=== PATIENT | female | born 1990 | race Caucasian/White ===

== ENCOUNTER 2021-06-29 08:20 | Emergency (ER) | payer MEDICARE, MEDICAID ==
[~2021-06-29] VITALS: Ht 167.6 cm; Wt 69.0 kg
[2021-06-29] MEDS ORDERED: ONDANSETRON HCL 4MG/2ML INJ IV STA (09:10)
[2021-06-29] MEDS ORDERED: SODIUM CHLORIDE 0.9% 1,000 ML IV ONE ×2 (09:15→12:45)
[2021-06-29 10:02] LABS: BG BASE EXCESS -6.3 mmol/L (-2.0-2.0); BG CARBOXYHEMOGLOBIN 1.2 % (0.5-1.5); BG DEOXYHEMOGLOBIN 1.8 % (0.0-5.0); BG FRACTION INSPIRED OXYGEN 21; BG HCO3 ACT 18.4 mmol/L (22.0-26.0); BG METHEMOGLOBIN 0.5 % (0.0-1.5); BG OXYGEN SATURATION 98.2 % (92.0-98.5); BG OXYHEMOGLOBIN 96.5 % (94.0-97.0); BG PCO2 34.2 mmHg (35.0-45.0); BG PH 7.349 (7.350-7.450); BG PO2 115.5 mmHg (75.0-100.0); BG SAMPLE SITE RIGHT RADIAL; BG TOTAL HEMOGLOBIN 13.9 g/dL (12.0-18.0); BG VENT MODE ROOM AIR
[2021-06-29 10:35] LABS: CLARITY URINE CLEAR (CLEAR); COLOR URINE YELLOW (YELLOW); KETONES URINE 4+ (NEGATIVE); LEUKOCYTE ESTERASE URINE NEGATIVE (NEGATIVE); NITRITE URINE NEGATIVE (NEGATIVE); OCCULT BLOOD URINE NEGATIVE (NEGATIVE); PROTEIN URINE NEGATIVE (NEGATIVE); SPECIFIC GRAVITY URINE 1.033 (1.005-1.030); UROBILINOGEN URINE 0.2 E.U./dL (0.2-1.0)
[2021-06-29 11:03] LABS: *AMPHETAMINES SCREEN URINE NEGATIVE (NEGATIVE); *BARBITURATES SCREEN URINE NEGATIVE (NEGATIVE); *BENZODIAZEPINES SCREEN URINE NEGATIVE (NEGATIVE); *COCAINE SCREEN URINE NEGATIVE (NEGATIVE)
[2021-06-29 11:04] LABS: CANNABINOID URINE SCREEN NEGATIVE (NEGATIVE); METHADONE URINE SCREEN NEGATIVE (NEGATIVE); OPIATES URINE SCREEN NEGATIVE (NEGATIVE); PHENCYCLIDINE URINE SCREEN NEGATIVE (NEGATIVE)
[2021-06-29 14:09] LABS: BASOPHILS % 0.4 % (0.0-2.0); EOSINOPHILS % 0.1 % (0.0-5.0); HEMATOCRIT. 37.9 % (36.0-48.0); HEMOGLOBIN. 12.5 g/dL (12.0-16.0); LYMPHOCYTES % 9.6 % (20.0-50.0); MEAN CORPUSCULAR HEMOGLOBIN 28.4 pg (28.0-32.0); MEAN CORPUSCULAR VOLUME 86.2 fL (81.0-99.0); MEAN PLATELET VOLUME 10.1 fl (7.4-10.4); MONOCYTES % 6.5 % (2.0-8.0); NEUTROPHILS % 83.4 % (40.0-76.0); PLATELET 207 x1000/uL (130-400); RED CELL DISTRIBUTION WIDTH 13.2 % (11.6-14.6)
[2021-06-29 14:12] LABS: CHLORIDE 110 mEq/L (98-107)
[2021-06-29 14:13] VITALS: BP 117/58
[2021-06-29 14:15] LABS: HCG SCREEN NEGATIVE
[2021-06-29 14:17] LABS: ETHANOL BLOOD < 10 mg/dL
[2021-06-29 14:18] LABS: PHOSPHORUS 3.5 mg/dL (2.5-4.9)
[2021-06-29 14:22] LABS: BETA HYDROXYBUTYRATE 4.1 mMol/L (0.0-0.3)
[2021-06-29] MEDS ORDERED: DEXT 5%/0.9% NACL KCL 20MEQ/L 1,000 ML IV ONE (14:30)
[2021-06-29] MEDS ORDERED: MAGNESIUM 2 G PREMIX 50 ML IV ONE (14:45)
[2021-06-29] MEDS ORDERED: INSULIN REGULAR (DRIP) 100 UNITS in SODIUM CHLORIDE 0.9% 99 ML IV NR (15:00)
[2021-06-29] MEDS ORDERED: INSULIN REGULAR (HUMULIN R) 300UNITS/3ML VIAL SUBCUT ONE (16:00)
[2021-06-29] MEDS ORDERED: ONDANSETRON 4MG ODT PO ONE (16:45)
== END 2021-06-29 17:05 | disposition left against medical advice (07) ==
LOC: ER 08:20 → CANBEDREQ 17:03 → ER 17:05
DX: U07.1 COVID-19 (principal); E11.10 Type 2 diabetes mellitus with ketoacidosis without coma; H91.90 Unspecified hearing loss, unspecified ear; Z79.4 Long term (current) use of insulin
CPT/HCPCS: 36415; 36600; 71045; 80053; 80305; 80320; 81003; 82010; 82375; 82805; 82962; 83605; 83690; 83735; 83930; 84100; 84703; 85025; 93005; 96361; 96374; 99291; J1815; J2405; J7030; J7050; Q0162; G0480

== ENCOUNTER 2021-06-30 09:43 | Inpatient (IN) | payer MEDICARE, MEDICAID ==
[~2021-06-30] VITALS: Ht 167.6 cm; Wt 63.5 kg
[2021-06-30] MEDS ORDERED: ONDANSETRON HCL 4MG/2ML INJ IV ONE (10:45)
[2021-06-30] MEDS ORDERED: SODIUM CHLORIDE 0.9% 1,000 ML IV ONE (10:45)
[2021-06-30 12:23] LABS: HEMATOCRIT. 41.8 % (36.0-48.0); HEMOGLOBIN. 12.6 g/dL (12.0-16.0); MEAN CORPUSCULAR VOLUME 92.6 fL (81.0-99.0); MEAN PLATELET VOLUME 10.6 fl (7.4-10.4); PLATELET 287 x1000/uL (130-400); RED BLOOD CELL COUNT 4.51 mill/uL (4.2-5.4); RED CELL DISTRIBUTION WIDTH 14.5 % (11.6-14.6)
[2021-06-30 12:30] LABS: CHLORIDE 106 mEq/L (98-107)
[2021-06-30 12:37] LABS: BETA HYDROXYBUTYRATE 6.4 mMol/L (0.0-0.3)
[2021-06-30 12:40] LABS: HCG SCREEN NEGATIVE
[2021-06-30 12:40] LABS: BG BASE EXCESS -21.6 mmol/L (-2.0-2.0); BG CARBOXYHEMOGLOBIN 0.3 % (0.5-1.5); BG DEOXYHEMOGLOBIN 2.6 % (0.0-5.0); BG FRACTION INSPIRED OXYGEN 21; BG HCO3 ACT 5.7 mmol/L (22.0-26.0); BG METHEMOGLOBIN 0.7 % (0.0-1.5); BG OXYGEN SATURATION 97.4 % (92.0-98.5); BG OXYHEMOGLOBIN 96.4 % (94.0-97.0); BG PCO2 17.9 mmHg (35.0-45.0); BG PO2 107.9 mmHg (75.0-100.0); BG SAMPLE SITE RIGHT RADIAL; BG TOTAL HEMOGLOBIN 13.7 g/dL (12.0-18.0); BG VENT MODE ROOM AIR
[2021-06-30] MEDS ORDERED: INSULIN REGULAR (DRIP) 100 UNITS in SODIUM CHLORIDE 0.9% 100 ML IV ONE (12:45)
[2021-06-30] MEDS ORDERED: INSULIN REGULAR (DRIP) 100 UNITS in SODIUM CHLORIDE 0.9% 100 ML IV PRN (13:00)
[2021-06-30] MEDS ORDERED: SODIUM BICARBONATE 8.4% 1 MEQ/ML 50ML SYR IV ONE (13:00)
[2021-06-30] MEDS: SODIUM CHLORIDE 0.9% 1,000 ML IV SCH ×6 (14:25→22:45)
[2021-06-30 14:44] LABS: CHLORIDE 111 mEq/L (98-107)
[2021-06-30] MEDS ORDERED: CLONIDINE 0.1MG TABLET PO PRN (14:45)
[2021-06-30] MEDS ORDERED: IPRATROPIUM/ALBUTEROL 0.5-3(2.5)MG/3ML NEB HHN PRN (14:45)
[2021-06-30] MEDS ORDERED: DIPHENHYDRAMINE 50MG/ML VIAL IV PRN (14:45)
[2021-06-30] MEDS ORDERED: ONDANSETRON HCL 4MG/2ML INJ IV PRN (14:45)
[2021-06-30 15:10] LABS: PLATELET ESTIMATE NORMAL
[2021-06-30] MEDS: CEFTRIAXONE 1 G PREMIX 50 ML IV SCH (16:47)
[2021-06-30 19:26] LABS: CLARITY URINE TURBID (CLEAR); COLOR URINE RED (YELLOW); KETONES URINE 4+ (NEGATIVE); LEUKOCYTE ESTERASE URINE 2+ (NEGATIVE); NITRITE URINE POSITIVE (NEGATIVE); OCCULT BLOOD URINE 2+ (NEGATIVE); PROTEIN URINE 2+ (NEGATIVE); SPECIFIC GRAVITY URINE 1.018 (1.005-1.030); UROBILINOGEN URINE 0.2 E.U./dL (0.2-1.0)
[2021-06-30 19:41] LABS: CHLORIDE 120 mEq/L (98-107)
[2021-06-30 19:47] LABS: PHOSPHORUS 2.7 mg/dL (2.5-4.9)
[2021-06-30] MEDS: DEXT 5%/0.9% NACL KCL 20MEQ/L 1,000 ML IV SCH (23:22)
[2021-07-01 02:38] LABS: CHLORIDE 124 mEq/L (98-107)
[2021-07-01] MEDS: SODIUM CHLORIDE 0.9% 1,000 ML IV SCH ×6 (02:45→22:57)
[2021-07-01] MEDS: DEXT 5%/0.9% NACL KCL 20MEQ/L 1,000 ML IV SCH ×4 (04:00→19:13)
[2021-07-01 05:36] LABS: CHLORIDE 125 mEq/L (98-107)
[2021-07-01 08:46] LABS: CHLORIDE 123 mEq/L (98-107)
[2021-07-01] MEDS: CEFTRIAXONE 1 G PREMIX 50 ML IV SCH (16:00)
[2021-07-02] MEDS: DEXT 5%/0.9% NACL KCL 20MEQ/L 1,000 ML IV SCH ×5 (00:37→20:00)
[2021-07-02 02:52] LABS: CHLORIDE 117 mEq/L (98-107)
[2021-07-02] MEDS: SODIUM CHLORIDE 0.9% 1,000 ML IV SCH ×4 (03:02→14:45)
[2021-07-02 05:36] LABS: CHLORIDE 123 mEq/L (98-107)
[2021-07-02 08:11] LABS: BG PH 7.365 (7.350-7.450); BG VENT MODE ROOM AIR
[2021-07-02 08:12] LABS: BG BASE EXCESS -5.9 mmol/L (-2.0-2.0); BG HCO3 ACT 18.6 mmol/L (22.0-26.0); BG OXYGEN SATURATION 97.7 % (92.0-98.5); BG OXYHEMOGLOBIN 97.3 % (94.0-97.0); BG PCO2 33.3 mmHg (35.0-45.0); BG PO2 106.4 mmHg (75.0-100.0); BG TOTAL HEMOGLOBIN 11.3 g/dL (12.0-18.0)
[2021-07-02 08:13] LABS: BG DEOXYHEMOGLOBIN 2.3 % (0.0-5.0); BG METHEMOGLOBIN 0.4 % (0.0-1.5)
[2021-07-02 08:56] LABS: BG SAMPLE SITE LEFT BRACHIAL
[2021-07-02] MEDS: ACETAMINOPHEN 325MG TABLET PO PRN (16:39)
[2021-07-02 18:05] LABS: CHLORIDE 110 mEq/L (98-107)
[2021-07-02] MEDS: CEFTRIAXONE 1 G PREMIX 50 ML IV SCH (20:54)
[2021-07-02] MEDS ORDERED: DEXTROSE 50% WATER 50ML SYRINGE IV PRN (23:45)
[2021-07-02] MEDS ORDERED: INSULIN GLARGINE UD 100 UNITS/ML SYR SUBCUT SCH (23:45)
[2021-07-02] MEDS ORDERED: BLOOD SUGAR DIAGNOSTIC STRIP TEST SCH (23:45)
[2021-07-03] MEDS: INSULIN LISPRO (HIGH DOSE) 100 UNITS/ML SUBCUT SCH ×5 (01:00→22:20)
[2021-07-03] MEDS: DEXT 5%/0.9% NACL KCL 20MEQ/L 1,000 ML IV SCH (01:00)
[2021-07-03] MEDS: BLOOD SUGAR DIAGNOSTIC STRIP TEST SCH ×6 (01:55→21:34)
[2021-07-03 05:14] LABS: BASOPHILS % 0.5 % (0.0-2.0); EOSINOPHILS % 1.2 % (0.0-5.0); HEMATOCRIT. 34.1 % (36.0-48.0); HEMOGLOBIN. 11.4 g/dL (12.0-16.0); LYMPHOCYTES % 33.5 % (20.0-50.0); MEAN CORPUSCULAR HEMOGLOBIN 28.7 pg (28.0-32.0); MEAN CORPUSCULAR VOLUME 86.1 fL (81.0-99.0); MEAN PLATELET VOLUME 9.7 fl (7.4-10.4); MONOCYTES % 9.3 % (2.0-8.0); NEUTROPHILS % 55.5 % (40.0-76.0); PLATELET 184 x1000/uL (130-400); RED BLOOD CELL COUNT 3.96 mill/uL (4.2-5.4); RED CELL DISTRIBUTION WIDTH 13.5 % (11.6-14.6)
[2021-07-03 05:18] LABS: CHLORIDE 109 mEq/L (98-107)
[2021-07-03] MEDS ORDERED: LANTUSUD SUBCUT (12:23)
[2021-07-03] MEDS ORDERED: POTASSIUM CHLORIDE 20MEQ TABLET SR PO NR (12:30)
[2021-07-03 14:01] VITALS: BP 114/86
[2021-07-03] MEDS ORDERED: POLYETHYLENE GLYCOL 3350 (17GM) 1 DOSE PACK PO PRN ×2 (17:45→20:00)
[2021-07-03] MEDS: ACETAMINOPHEN 325MG TABLET PO PRN (17:46)
[2021-07-03] MEDS: CEFTRIAXONE 1,000 MG in DEXTROSE 5% WATER 50 ML IV SCH (17:46)
[2021-07-03] MEDS: METOCLOPRAMIDE HCL 10MG/2ML VIAL IV SCH (17:51)
[2021-07-03 20:00] VITALS: BP 107/53
[2021-07-03] MEDS ORDERED: INSULIN GLARGINE UD 100 UNITS/ML SYR SUBCUT SCH (22:00)
[2021-07-04] VITALS: BP 96/62
[2021-07-04] MEDS: METOCLOPRAMIDE HCL 10MG/2ML VIAL IV SCH ×3 (00:29→11:57)
[2021-07-04] MEDS: BLOOD SUGAR DIAGNOSTIC STRIP TEST SCH ×5 (00:40→16:12)
[2021-07-04] MEDS: INSULIN LISPRO (HIGH DOSE) 100 UNITS/ML SUBCUT SCH ×5 (00:41→16:59)
[2021-07-04 04:00] VITALS: BP 97/63
[2021-07-04 07:27] LABS: BASOPHILS % 0.6 % (0.0-2.0); EOSINOPHILS % 2.9 % (0.0-5.0); HEMATOCRIT. 38.5 % (36.0-48.0); HEMOGLOBIN. 12.7 g/dL (12.0-16.0); LYMPHOCYTES % 43.5 % (20.0-50.0); MEAN CORPUSCULAR HEMOGLOBIN 28.1 pg (28.0-32.0); MEAN CORPUSCULAR VOLUME 85.1 fL (81.0-99.0); MEAN PLATELET VOLUME 9.5 fl (7.4-10.4); MONOCYTES % 9.8 % (2.0-8.0); NEUTROPHILS % 43.2 % (40.0-76.0); PLATELET 195 x1000/uL (130-400); RED BLOOD CELL COUNT 4.53 mill/uL (4.2-5.4); RED CELL DISTRIBUTION WIDTH 13.6 % (11.6-14.6)
[2021-07-04 08:00] VITALS: BP 100/53
[2021-07-04 09:44] LABS: CHLORIDE 108 mEq/L (98-107)
[2021-07-04 10:41] VITALS: BP 100/53
[2021-07-04 12:00] VITALS: BP 108/64
[2021-07-04] MEDS ORDERED: NON FORMULARY PATIENT HOME MED SUBCUT SCH (12:00)
[2021-07-04] MEDS ORDERED: INSULIN LISPRO (PRANDIAL)100 UNITS/ML SUBCUT SCH ×2 (12:30→17:40)
[2021-07-04] MEDS ORDERED: INSULIN GLARGINE UD 100 UNITS/ML SYR SUBCUT SCH (13:00)
[2021-07-04] MEDS ORDERED: INSULIN GLARGINE UD 100 UNITS/ML SYR SUBCUT ONE (13:00)
[2021-07-04] MEDS: CEFTRIAXONE 1,000 MG in DEXTROSE 5% WATER 50 ML IV SCH (16:00)
== END 2021-07-04 17:10 | disposition home or self-care (01) | DRG 871 ==
LOC: ER 09:59 → MICUSO 12:47 → 7WST 07-03 10:21
PROVIDERS: ADMIT Internal Medicine; ATTEND Internal Medicine
DX: A41.9 Sepsis, unspecified organism (principal); U07.1 COVID-19; E10.10 Type 1 diabetes mellitus with ketoacidosis without coma; N39.0 Urinary tract infection, site not specified; E87.5 Hyperkalemia; D72.829 Elevated white blood cell count, unspecified; D72.825 Bandemia; Z79.4 Long term (current) use of insulin; H91.90 Unspecified hearing loss, unspecified ear; R06.82 Tachypnea, not elsewhere classified; R00.0 Tachycardia, unspecified
CPT/HCPCS: 36415; 36600; 71045; 80048; 80053; 80305; 80320; 81003; 82010; 82375; 82805; 82962; 83605; 83735; 83930; 84100; 84145; 84443; 84703; 85025; 86140; 87106; 87426; 93005; 93970; 99291; J0696; J1200; J1815; J2405; J2765; J3490; J7030; J7050; J7060; G0480